=== PATIENT | female | born 1990 | race Caucasian/White ===

== ENCOUNTER 2018-06-04 03:35 | Emergency (ER) | payer OTHER ==
[2018-06-04] MEDS: ONDANSETRON (ODT) 4 MG TAB ODT (06:36)
== END 2018-06-04 06:40 | disposition home or self-care (01) ==
LOC: FTE 03:35
DX: R00.2 Palpitations (principal); E03.9 Hypothyroidism, unspecified
CPT/HCPCS: 99283; Z7502